=== PATIENT | male | born 1990 | race African-American/Black ===

== ENCOUNTER 2020-07-05 00:56 | Emergency (ER) | payer SELFPAY ==
[~2020-07-05] VITALS: Ht 167.6 cm; Wt 68.9 kg
[2020-07-05 01:07] VITALS: BP 140/80; Ht 167.6 cm; Wt 68.9 kg
== END 2020-07-05 02:37 | disposition left against medical advice (07) ==
LOC: ED 00:56
DX: Z53.21 Procedure and treatment not carried out due to patient leaving prior to being seen by health care provider (principal)

== ENCOUNTER 2020-10-31 20:10 | Emergency (ER) | payer SELFPAY ==
[~2020-10-31] VITALS: Ht 170.2 cm; Wt 65.8 kg
[2020-10-31 20:24] VITALS: BP 121/76; Ht 170.2 cm; Wt 65.8 kg
== END 2020-10-31 22:10 | disposition left against medical advice (07) ==
LOC: ED 20:10
DX: Z53.21 Procedure and treatment not carried out due to patient leaving prior to being seen by health care provider (principal)